=== PATIENT | female | born 1955 | race Caucasian/White ===

== ENCOUNTER 2022-08-20 12:28 | Emergency (ER) | payer BC ==
[~2022-08-20] VITALS: Ht 160 cm; Wt 67.8 kg
[2022-08-20] MEDS ORDERED: SERTRALINE HCL25 MG PO (12:43)
[2022-08-20 13:47] VITALS: BP 125/80
== END 2022-08-20 13:48 | disposition home or self-care (01) ==
LOC: ED 12:28
DX: S20.212A Contusion of left front wall of thorax, initial encounter (principal); W18.39XA Other fall on same level, initial encounter; Z88.5 Allergy status to narcotic agent; Z79.899 Other long term (current) drug therapy
CPT/HCPCS: 71101; 99283 25